=== PATIENT | female | born 1995 | race Caucasian/White ===

== ENCOUNTER → 2016-04-19 | Outpatient (CLI) | payer MEDICAID ==
[~2016-04-19] MED LIST: AMOXIL500 MG PO; CEFTIN 250MG T250 MG PO; MEDROL 4MG. DOSE4 MG; PRILOSEC40 MG PO
[2016-04-25 21:27] LABS: Maternal Age At EDD 21.6
[2016-04-25 21:28] LABS: AFP Value 20.3; Insulin Dep Diabetes NO; hCG MoM 0.59; hCG Value 21164; uE3 MoM 1.16; uE3 Value 1.34
[2016-04-25 21:29] LABS: DIA MoM 1.23; DIA Value 229.78; DSR (Second Trimester) 1 IN 6314; Interpretation SCREEN NEGATIVE; OSBR Risk 1 IN 10000
== END ==
LOC: LAB 09:47
PROVIDERS: Obstetrics & Gynecology
DX: Z36 Encounter for antenatal screening of mother (principal)

== ENCOUNTER → 2016-08-28 | Outpatient (CLI) | payer MEDICAID | LOC: LAB 17:22 | DX: Z36 Encounter for antenatal screening of mother (principal) ==